=== PATIENT | female | born 1970 | race Caucasian/White ===

== ENCOUNTER 2018-04-27 14:31 | Outpatient (CLI) | payer BC | END 2018-04-27 14:32 | disposition home or self-care (01) | LOC: BICULT 14:31 | PROVIDERS: ATTEND Physician Assistant | DX: M79.661 Pain in right lower leg (principal) ==

== ENCOUNTER 2019-09-05 07:04 | Outpatient (CLI) | payer BC ==
--- NOTE | 2019-09-05 08:15 | ULT ---
Sonogram abdomen complete HISTORY: Abdominal pain and bloating. FINDINGS: Gallbladder has a normal appearance without evidence of stones. Common duct is 0.3 cm. Live r unremarkable without focal mass or intrahepatic biliary dilatation. The spleen, kidneys, and visualized portions of the abdominal aorta, IVC, and pancreas are within normal limits. 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 IMPRESSION: No abnormalities are demonstrated.
== END 2019-09-05 07:05 | disposition home or self-care (01) ==
LOC: BICULT 07:04
PROVIDERS: ATTEND Internal Medicine Gastroenterology
DX: K25.9 Gastric ulcer, unspecified as acute or chronic, without hemorrhage or perforation (principal); K63.5 Polyp of colon; K21.9 Gastro-esophageal reflux disease without esophagitis; R10.84 Generalized abdominal pain; R19.4 Change in bowel habit; R13.10 Dysphagia, unspecified
CPT/HCPCS: 93975

== ENCOUNTER 2020-10-09 11:24 | Outpatient (CLI) | payer OTHER ==
--- NOTE | 2020-10-09 12:00 | RAD ---
CERVICAL SPINE 3 VIEWS: HISTORY: Disability exam. FINDINGS: Predental space is normal. There is no prevertebral soft tissue swelling. On the AP projection, there is multilevel facet hypertrophy. There is grade 1 anterolisthesis of C4 upon C5. Mild loss of disc space height and osteophyte formati on at C4-C5 and C5-C6. IMPRESSION: Multilevel degenerative changes of cervical spine. Further evaluation with [facility] MRI is [facility]. Transcribed Date/Time: 10/09/2020 12:05 PM
== END 2020-10-09 11:25 | disposition home or self-care (01) ==
LOC: BICRAD 11:24
PROVIDERS: ATTEND Internal Medicine
DX: Z02.71 Encounter for disability determination (principal); M47.812 Spondylosis without myelopathy or radiculopathy, cervical region
CPT/HCPCS: 72040

== ENCOUNTER 2022-10-03 08:03 | Outpatient (CLI) | payer OTHER | END 2022-10-03 08:04 | disposition home or self-care (01) | LOC: SCSMRI 08:03 | PROVIDERS: ATTEND Psychiatry & Neurology Neurology | DX: M48.02 Spinal stenosis, cervical region (principal) | CPT/HCPCS: 72141 ==

== ENCOUNTER 2024-01-26 10:32 | Outpatient (CLI) | payer OTHER | END 2024-01-26 10:33 | disposition home or self-care (01) | LOC: BICRAD 10:32 | PROVIDERS: ATTEND Preventive Medicine Occupational Medicine | DX: Z02.71 Encounter for disability determination (principal); M54.2 Cervicalgia; M54.50 Low back pain, unspecified; M40.56 Lordosis, unspecified, lumbar region; M47.816 Spondylosis without myelopathy or radiculopathy, lumbar region; M47.817 Spondylosis without myelopathy or radiculopathy, lumbosacral region; M40.50 Lordosis, unspecified, site unspecified; M43.12 Spondylolisthesis, cervical region | CPT/HCPCS: 72040; 72100 ==